=== PATIENT | male | born 1980 | race African-American/Black ===

== ENCOUNTER 2017-05-04 22:31 | Emergency (ER) | payer OTHER ==
[~2017-05-04] VITALS: Ht 188 cm; Wt 202.8 kg
[2017-05-04] MEDS ORDERED: ZANTAC 150MG T150 MG (22:52)
[2017-05-04] MEDS ORDERED: HYDROCHLOROTHIA25 M1 (22:52)
[2017-05-04 23:41] LABS: ABSOLUTE BASOPHILS 0.1 thou/uL (0.0-0.2); ABSOLUTE EOSINOPHILS 0.1 thou/uL (0.0-0.7); ABSOLUTE LYMPHOCYTES 2.2 thou/uL (0.8-5.3); ABSOLUTE MONOCYTES 0.8 thou/uL (0.0-1.2); ABSOLUTE NEUTROPHILS 8.6 thou/uL (1.6-8.1); BASOPHILS 0.9 %; EOSINOPHILS 0.4 %; HEMATOCRIT 38.6 % (42.0-52.0); HEMOGLOBIN 13.2 gm/dL (14.0-18.0); MCH 24.2 pg (26.0-34.0); MCHC 34.4 g/dL (28.0-37.0); MCV 70.4 fL (80.0-100.0); MONOCYTES 6.5 %; MPV 10.1 fl. (7.2-11.1); NUCLEATED RBCS 0 /100WBC; PLATELET COUNT* 238 thou/uL (150-400); POLYS 73.2 %; RBC 5.48 mil/uL (4.50-6.00); RDW-CV 16.8 % (10.5-14.5); WBC 11.8 thou/uL (4.0-11.0)
[2017-05-05] LABS: CALCIUM 9.1 mg/dL (8.5-10.1); CREATININE 0.9 mg/dL (0.6-1.3); POTASSIUM 3.3 mmol/L (3.5-5.1)
[2017-05-05 00:05] LABS: ALBUMIN 3.5 g/dL (3.4-5.0); TOTAL BILIRUBIN 0.3 mg/dL (<0.1-1.0); TOTAL PROTEIN 8.4 g/dL (6.4-8.2)
[2017-05-05] MEDS ORDERED: AUGMENTIN 875-1 EACH PO (00:17)
[2017-05-05 00:30] LABS: INFLUENZA A ANTIGEN None Detected (None Detect); INFLUENZA B ANTIGEN None Detected (None Detect)
[2017-05-05 00:41] VITALS: BP 140/91
[2017-05-05 02:27] LABS: HYPOCHROMASIA 1+; MICROCYTES 2+; PLATELET ESTIMATE ADEQUATE
[2017-06-24] MEDS ORDERED: PRILOSEC 20 MG20 MG PO (13:12)
== END 2017-05-05 00:42 | disposition home or self-care (01) ==
LOC: M.ERS 22:31
PROVIDERS: Nurse Practitioner Family
DX: J01.90 Acute sinusitis, unspecified (principal); I10 Essential (primary) hypertension; K21.9 Gastro-esophageal reflux disease without esophagitis

== ENCOUNTER 2017-05-10 08:43 | Emergency (ER) | payer OTHER ==
[~2017-05-10] VITALS: Ht 185.4 cm; Wt 204.1 kg
[~2017-05-10 08:43] MED LIST: AUGMENTIN 875-1 EACH PO; HYDROCHLOROTHIA25 M1; ZANTAC 150MG T150 MG
[2017-05-10] MEDS ORDERED: LISINOPRIL10 MG PO (08:56)
[2017-05-10 10:33] VITALS: BP 149/89
[2017-06-24] MEDS ORDERED: PRILOSEC 20 MG20 MG PO (13:12)
== END 2017-05-10 10:34 | disposition home or self-care (01) ==
LOC: M.ERS 08:43
DX: R51 Headache (principal); I10 Essential (primary) hypertension; K21.9 Gastro-esophageal reflux disease without esophagitis

== ENCOUNTER → 2017-07-08 | Day surgery (SDC) | payer OTHER ==
[~2017-07-08] MED LIST changes: +LISINOPRIL10 MG PO; +PRILOSEC 20 MG20 MG PO
== END | disposition home or self-care (01) ==
LOC: M.SUR 07-04 08:13
DX: K21.0 Gastro-esophageal reflux disease with esophagitis (principal); Z53.8 Procedure and treatment not carried out for other reasons; I10 Essential (primary) hypertension; G47.33 Obstructive sleep apnea (adult) (pediatric); Z98.890 Other specified postprocedural states; Z79.899 Other long term (current) drug therapy

== ENCOUNTER → 2017-07-23 | Day surgery (SDC) | payer OTHER ==
--- NOTE | ~2017-07-23 | PROC ---
[address] [address] PROCEDURE REPORT Name: DAVID PATEL Room: [facility] Sangeeta#: [id number] Admission: 07/23/17 Attend Phys: Michael Castanon MD Discharge: Date of : 84 Report #: [id number] THIS REPORT FOR: //name// For GI report, please see Perceptive 7 content. By: 0655Medical Records Staff MARÍA /ALVARADO
[2017-07-23 14:03] LABS: HEMOGLOBIN 12.8 gm/dL (14.0-18.0); MCHC 33.7 g/dL (28.0-37.0); MCV 71.2 fL (80.0-100.0); MPV 10.1 fl. (7.2-11.1); RBC 5.33 mil/uL (4.50-6.00); WBC 8.7 thou/uL (4.0-11.0)
[2017-07-23 14:07] LABS: CALCIUM 9.5 mg/dL (8.5-10.1); CREATININE 0.9 mg/dL (0.6-1.3); POTASSIUM 4.3 mmol/L (3.5-5.1)
--- NOTE | 2017-07-23 15:12 | EKG ---
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
== END | disposition home or self-care (01) ==
LOC: M.SUR 09:07
PROVIDERS: Internal Medicine Gastroenterology
DX: K21.0 Gastro-esophageal reflux disease with esophagitis (principal); K44.9 Diaphragmatic hernia without obstruction or gangrene; I10 Essential (primary) hypertension; E66.09 Other obesity due to excess calories; Z79.899 Other long term (current) drug therapy

== ENCOUNTER → 2019-11-15 | Outpatient (CLI) | payer OTHER | LOC: M.RAD 16:38 | PROVIDERS: ATTEND Family Medicine | DX: M48.07 Spinal stenosis, lumbosacral region (principal) ==